=== PATIENT | female | born 1960 | race Caucasian/White ===

== ENCOUNTER → 2016-06-25 | Outpatient (CLI) | payer BC, OTHER ==
[~2016-06-25] MED LIST: GADOBUTROL 7.5 MMOL/7.5 ML VIAL IV ONE; TERB250T PO
--- NOTE | 2016-06-25 12:30 | KCIC ---
PROCEDURE MRI cervical spine with and without contrast. HISTORY Radiculopathy. Neck pain, stiffness, left upper extremity numbness and tingling. TECHNIQUE Sagittal T1, sagittal T2, sagittal STIR, axial T2, and axial T2 gradient sequences are provided. Sagittal STIR sequence was degraded by motion and repeated. 6 milliliters of intravenous Gadavist was administered and post-contrast axial and sagittal imaging performed. COMPARISON None at this institution. FINDINGS There is 2 millimeters of anterolisthesis at C4-C5 and 2 millimeters of retrolisthesis at C5-C6. There is slight straightening of cervical lordosis. There is no worrisome marrow lesion. There is subtle STIR hyperintensity within the cord at C6 and C7, about the length of 2 vertebral bodies, apparent on both the initial STIR sequence and the repeat. However, no definite correlate on the T2 axial or sagittal series is apparent. There is no cord thinning associated with this potential finding. Finding probably is artifactual although subtle demyelinating plaque or transverse myelitis cannot be excluded. There is no associated enhancement. There is otherwise no cord signal abnormality. Degenerative findings by individual level are as follows: C2-C3: There is no canal or foraminal compromise. C3-C4: There is mild uncinate process spurring and facet hypertrophy without high-grade canal or foraminal compromise. C4-C5: Facet hypertrophy is greater on the left. Minimal disc osteophyte complex and uncinate process spurring are noted. There is no canal or foraminal compromise. C5-C6: Disc osteophyte complex and uncinate process spurring are noted. Uncinate process spurring is greater on the left. There is slight cord flattening, greater on the left, no associated cord hyperintensity. Midline AP diameter of the thecal sac is mildly narrowed to 9 millimeters. There is high-grade left foraminal narrowing. Right foraminal narrowing is mild. C6-C7: Disc osteophyte complex and uncinate process spurring are noted. Left paracentral protruding spur or disc is noted. There is slight cord flattening on the left. Midline AP diameter of the thecal sac is mildly narrowed, measures 8 millimeters. Foraminal narrowing is at least moderate on the left and mild to moderate on the right. C7-T1: Disc osteophyte complex with shallow left paracentral protrusion is noted. There is mild foraminal narrowing. Midline AP diameter of the thecal sac is 9 millimeters. There is mild to moderate foraminal compromise. IMPRESSION 1. Degenerative changes in the cervical spine, most notably from C5-C6 through C7-T1. 2. Potential cord hyperintensity diffusely at C6 and C7, only apparent on STIR imaging and not able to be confirmed on T2 imaging in either plain. Finding may be artifactual. If a true finding, it is nonspecific. Demyelination and transverse myelitis would be considerations. Clinical correlation would be suggested. Short-term follow-up can be considered. Electronically signed by: Jg Vance MD (Jun 25, 2016 12:28:40)
== END | disposition home or self-care (01) ==
LOC: KCIC MRI 10:05
PROVIDERS: ATTEND Family Medicine
DX: M54.12 Radiculopathy, cervical region (principal); G37.3 Acute transverse myelitis in demyelinating disease of central nervous system; M47.892 Other spondylosis, cervical region
CPT/HCPCS: 72156; A9585